=== PATIENT | female | born 1980 | race African-American/Black ===

== ENCOUNTER 2025-01-12 16:17 | Emergency (ER) | payer MEDICAID, SELFPAY ==
[2025-01-12] VITALS (10 sets, daily range): BP systolic 110–125; BP diastolic 62–82; PULSE 80–93; RESP 13–22; TEMP 36.3–36.8; O2SAT 97–100; BMI 28.4
[2025-01-12] MEDS: 0.9% Normal Saline (1000mL) 1,000 ML 1000 ML IV (17:01)
[2025-01-12 17:05] LABS: Hematocrit 24.8 % (37-47); Hemoglobin 6.2 g/dL (12.0-15.0); Immature Granulocytes Count 0.120 X10^3/uL (0.0-0.0); Mean Corp Hgb Conc 25.0 g/dL (32-36); Mean Corpuscular Volume 60.6 fL (81-99); Mean Platelet Vol. 8.9 fl (6.2-12.0); NRBC Flagged by Analyzer 0.2 % (0-5); POSITIVE MORPHOLOGY YES; Platelet Count 576 K/mm3 (150-450); RBC Distribution Width CV 22.7 % (11.6-14.6); RBC Distribution Width SD 46.6 fl (35.1-43.9); Red Blood Count 4.09 M/mm3 (4.2-5.4); White Blood Count 18.0 K/mm3 (4.4-11.0)
[2025-01-12 17:22] LABS: Differential Indicated SCAN CRITERIA MET
[2025-01-12 17:31] LABS: Anisocytosis 2+; Differential Comment SCANNED; Hypochromasia 4+
[2025-01-12 17:32] LABS: Microcytosis 1+; Polychromasia RARE; Schistocytes RARE; Target Cells 1+
[2025-01-12 17:48] LABS: Anion Gap 13 (5-15); BUN 11 mg/dL (4-19); BUN/Creat Ratio 14.3 RATIO (10-20); Calcium,Total 8.8 mg/dL (7.6-11.0); Carbon Dioxide 19.4 mmol/L (21.0-32.0); Chloride 108 mmol/L (98-108); Estimated Creatinine Clearance 97.03 ml/min (50-250); Glucose 123 mg/dL (70-99); Potassium 3.8 mmol/L (3.3-5.1)
[2025-01-12] MEDS: Lidocaine 1% (20 ml mdv) 20 ML Vial INFILT (18:08)
== END 2025-01-13 00:11 | disposition short-term general hospital (02) ==
PROVIDERS: Emergency Provider Emergency Medicine; Visit Provider Emergency Medicine
DX: S92.101A Unspecified fracture of right talus, initial encounter for closed fracture (principal); S22.039A Unspecified fracture of third thoracic vertebra, initial encounter for closed fracture; S52.571A Other intraarticular fracture of lower end of right radius, initial encounter for closed fracture; S63.281A Dislocation of proximal interphalangeal joint of left index finger, initial encounter; S01.511A Laceration without foreign body of lip, initial encounter; V49.88XA Car occupant (driver) (passenger) injured in other specified transport accidents, initial encounter; F17.210 Nicotine dependence, cigarettes, uncomplicated
CPT/HCPCS: 29515; 29125; 26770; 70450; 70486; 72125; 73060; 73110; 73140; 73610; 80048; 85025; 86850; 86900; 86901; 96361; 96374; 96375; 96376; 99285; A4216; J2405